=== PATIENT | female | born 1945 | race Caucasian/White ===

== ENCOUNTER → 2016-12-03 | Outpatient (CLI) | payer MEDICARE, OTHER ==
[2016-12-03 14:10] LABS: HEMATOCRIT 37.4 % (36.0-47.0); HEMOGLOBIN 12.4 g/dL (12.0-15.5); HGB HCT DIFFERENCE -0.2; MEAN CORPUSCULAR HEMOGLOBIN 30.6 pg (27.0-33.4); MEAN CORPUSCULAR HGB CONC 33.3 g/dL (32.0-36.0); MEAN CORPUSCULAR VOLUME 92 fl (80-97); RED BLOOD COUNT 4.07 10^6/uL (3.72-5.28); RED CELL DISTRIBUTION WIDTH 12.7 % (11.5-14.0); WHITE BLOOD COUNT 4.9 10^3/uL (4.0-10.5)
[2016-12-03 14:29] LABS: ALANINE AMINOTRANSFERASE 34 U/L (9-52); ALBUMIN 4.1 g/dL (3.5-5.0); ALKALINE PHOSPHATASE 46 U/L (38-126); ANION GAP 12 (5-19); ASPARTATE AMINO TRANSFERASE 43 U/L (14-36); BILIRUBIN,TOTAL 0.9 mg/dL (0.2-1.3); BLOOD UREA NITROGEN 18 mg/dL (7-20); CALCIUM 9.4 mg/dL (8.4-10.2); CARBON DIOXIDE 31 mmol/L (22-30); CHLORIDE 92 mmol/L (98-107); CHOLESTEROL 235.56 mg/dL (0-200); CREATININE RESULT 0.83 mg/dL (0.52-1.25); Direct HDL 44 mg/dL (>40); GLUCOSE 96 mg/dL (75-110); POTASSIUM 3.5 mmol/L (3.6-5.0); SODIUM 135.1 mmol/L (137-145); TOTAL PROTEIN 7.2 g/dL (6.3-8.2); TRIGLYCERIDES 306 mg/dL (<150)
[2016-12-03 14:41] LABS: DIRECT LDL 160 mg/dL (<100)
[2016-12-03 14:43] LABS: VLDL CHOLESTEROL 61.2 mg/dL (10-31)
[2016-12-03 14:54] LABS: THYROID STIMULATING HORMONE 0.79 uIU/mL (0.47-4.68)
== END ==
LOC: PNR 12:31
PROVIDERS: ATTEND Internal Medicine
DX: I10 Essential (primary) hypertension (principal); E78.00 Pure hypercholesterolemia, unspecified; E03.9 Hypothyroidism, unspecified; Z79.899 Other long term (current) drug therapy
CPT/HCPCS: 80053; 80061; 84439; 84443; 85027

== ENCOUNTER → 2017-09-08 | Outpatient (CLI) | payer MEDICARE, OTHER ==
[2017-09-08 12:56] LABS: ABSOLUTE BASOPHILS # (AUTO) 0.1 10^3/uL (0.0-0.2); ABSOLUTE EOSINOPHILS # (AUTO) 0.2 10^3/uL (0.0-0.6); ABSOLUTE LYMPHOCYTES (AUTO) 1.8 10^3/uL (0.5-4.7); ABSOLUTE MONOCYTES (AUTO) 0.5 10^3/uL (0.1-1.4); ABSOLUTE NEUT (AUTO) 2.8 10^3/uL (1.7-8.2); BASOPHILS % (AUTO) 1.1 % (0-2); HEMATOCRIT 33.9 % (36.0-47.0); HEMOGLOBIN 12.3 g/dL (12.0-15.5); LYMPHOCYTES % (AUTO) 33.6 % (13-45); MEAN CORPUSCULAR HGB CONC 36.3 g/dL (32.0-36.0); MEAN CORPUSCULAR VOLUME 88 fl (80-97); MONOCYTES % (AUTO) 9.6 % (3-13); RED BLOOD COUNT 3.85 10^6/uL (3.72-5.28); RED CELL DISTRIBUTION WIDTH 13.2 % (11.5-14.0); SEGMENTED NEUTROPHILS % (AUTO) 51.7 % (42-78); WHITE BLOOD COUNT 5.3 10^3/uL (4.0-10.5)
[2017-09-08 13:16] LABS: ALANINE AMINOTRANSFERASE 34 U/L (9-52); ALBUMIN 4.7 g/dL (3.5-5.0); ALKALINE PHOSPHATASE 55 U/L (38-126); ANION GAP 14 (5-19); ASPARTATE AMINO TRANSFERASE 26 U/L (14-36); BILIRUBIN,DIRECT 0.4 mg/dL (0.0-0.4); BILIRUBIN,TOTAL 0.9 mg/dL (0.2-1.3); BLOOD UREA NITROGEN 14 mg/dL (7-20); CALCIUM 10.1 mg/dL (8.4-10.2); CARBON DIOXIDE 30 mmol/L (22-30); CHLORIDE 92 mmol/L (98-107); CHOLESTEROL 235.73 mg/dL (0-200); CREATININE RESULT 0.86 mg/dL (0.52-1.25); Direct HDL 53 mg/dL (>40); GLUCOSE 102 mg/dL (75-110); MAGNESIUM 1.9 mg/dL (1.6-2.3); POTASSIUM 3.5 mmol/L (3.6-5.0); SODIUM 135.6 mmol/L (137-145); TOTAL PROTEIN 7.8 g/dL (6.3-8.2); TRIGLYCERIDES 275 mg/dL (<150)
[2017-09-08 13:27] LABS: DIRECT LDL 141 mg/dL (<100)
[2017-09-08 13:47] LABS: THYROID STIMULATING HORMONE 0.15 uIU/mL (0.47-4.68)
== END ==
LOC: OD 12:20
PROVIDERS: ATTEND Internal Medicine
DX: E03.9 Hypothyroidism, unspecified (principal); I10 Essential (primary) hypertension; E11.29 Type 2 diabetes mellitus with other diabetic kidney complication; Z79.899 Other long term (current) drug therapy
CPT/HCPCS: 36415; 80053; 80061; 82306; 82607; 82746; 83036; 83735; 84439; 84443; 85025

== ENCOUNTER 2019-07-10 21:18 | Emergency (ER) | payer MEDICARE ==
--- NOTE | 2019-07-10 22:43 | ER Document Report ---
ED Psych Disorder / Suicide - General Chief Complaint: Psych Problem Stated Complaint: VISUAL DISTURBANCES Time Seen by Provider: 07/10/19 22:19 Primary Care Provider: VICTORINO CASTRO PA-C [NO LOCAL MD] - Follow up as needed TRAVEL OUTSIDE OF THE [place] IN LAST 30 DAYS: No - HPI Notes: Patient is a 73-year-old female that presents to the emergency department for chief complaint of visual hallucinations. Patient states she is been having visual hallucinations for the last 3 or 4 days. She states the main when she can remember she was sitting on her couch and saw a figure of 2 Girls Walk into her living room. She can vividly describe 1 of the girls is a blond wearing a unique outfit that was hard to see. She states she was very sure that the hallucinations were real until she told her son about them. Patient believes they started after being put on citalopram and BuSpar. She had been on chronic Ativan and because of home stressors had taken more than prescribed. Patient ran out of the Ativan about 2 weeks ago and her son took her to a new doctor to help with her symptoms. The new doctor began on the citalopram and BuSpar. Patient denies history of hallucinations or psychosis in the past. She takes the Ativan for anxiety. She denies any recent illness including fever, chills, cough, shortness of breath, chest pain, nausea/vomiting, abdominal pain and diarrhea. Past Medical History: Hypertension, neuropathy Past Surgical History: Reviewed in chart Social History: Lives at home independently. Denies tobacco, drug and alcohol use Family History: Reviewed and noncontributory for presenting illness Allergies: Reviewed, see documented allergy list. REVIEW OF SYSTEMS: CONSTITUTIONAL : No fever No chills No diaphoresis No recent illness EENT: No vision changes No congestion No sore throat CARDIOVASCULAR: No chest pain No palpitations RESPIRATORY: No shortness of breath No cough No difficulty breathing GASTROINTESTINAL: No abdominal pain No nausea No vomiting No diarrhea GENITOURINARY: No dysuria No hematuria No difficulty urinating MUSCULOSKELETAL: No back pain No leg pain No arm pain SKIN: No rashes No lesions LYMPHATIC: No swollen, enlarged glands. NEUROLOGICAL: No lightheadedness No headache No weakness No paresthesias PSYCHIATRIC: anxiety Hallucinations No depression PHYSICAL EXAMINATION: Vital signs reviewed, nursing noted reviewed. GENERAL: Well-appearing, well-nourished and in no acute distress. HEAD: Atraumatic, normocephalic. EYES: Eyes appear normal, extraocular movements intact, sclera anicteric, conjunctiva are normal. ENT: nares patent, oropharynx clear without exudates. Moist mucous membranes. NECK: Normal range of motion, supple without lymphadenopathy LUNGS: Breath sounds clear to auscultation bilaterally and equal. No wheezes rales or rhonchi. HEART: Regular rate and rhythm without murmurs ABDOMEN: Soft, nontender, normoactive bowel sounds. No rebound, guarding, or rigidity. No masses appreciated. EXTREMITIES: Nontender, good range of motion, no pitting or edema. NEUROLOGICAL: No focal neurological deficits. Moves all extremities s pontaneously Motor and sensory grossly intact on exam. PSYCH: Normal mood, normal affect. Not actively hallucinating. Not suicidal or homicidal SKIN: Warm, Dry, normal turgor, no rashes or lesions noted on exposed skin - Related Data Allergies/Adverse Reactions: celecoxib [From Celebrex] Allergy (Severe, Verified 12/05/11 10:52) felt crazy diazepam [From Valium] Allergy (Severe, Verified 12/05/11 10:52) Nightmares Past Medical History - Social History Smoking Status: Never Smoker Family History: Reviewed & Not Pertinent - Past Medical History Cardiac Medical History: Reports: Hx Hypertension - medicated Denies: Hx Coronary Artery Disease, Hx Heart Attack Pulmonary Medical History: Denies: Hx Asthma, Hx Bronchitis, Hx COPD, Hx Pneumonia Neurological Medical History: Denies: Hx Cerebrovascular Accident, Hx Seizures GI Medical History: Denies: Hx Hepatitis, Hx Hiatal Hernia, Hx Ulcer Musculoskeletal Medical History: Denies Hx Arthritis Infectious Medical History: Denies: Hx Hepatitis Past Surgical History: Reports: Hx Hysterectomy. Denies: Hx Mastectomy, Hx Open Heart Surgery, Hx Pacemaker - Immunizations Hx Diphtheria, Pertussis, Tetanus Vaccination: No Physical Exam - Vital signs Vitals: Temp Pulse Resp BP Pulse Ox 98.1 F 61 20 139/51 H 97 07/10/19 21:20 07/10/19 21:20 07/10/19 21:20 07/10/19 21:20 07/10/19 21:20 Course - Re-evaluation Re-evalutation: 07/10/19 22:42 Vitals reviewed. Nursing notes reviewed. Patient is alert and oriented. She does not appear to be having active hallucinations and denies any hallucinations currently. Patient's son is also present who is concerned about her confusion and visual hallucinations. Patient did start new medications just prior to onset which may be the cause. Lab work will be obtained today to evaluate for any other etiology including urinary tract infection or metabolic derangement. 07/10/19 23:55 Patient's lab work today shows hyponatremia at 125.9. Patient does report taking Lasix for history of fluid overload. She denies any history of congestive heart failure. Patient's hallucinations are not likely secondary to her hyponatremia. My comparison is from 2017 which she states was prior to her starting the Lasix. I did discuss her hyponatremia with Dr. Peerz who does not feel she necessitates inpatient admission. He recommends trying some corrective measures had repeating it in the morning. The remainder of her work- up is unremarkable. Her hallucinations are likely secondary to medications. Patient is medically cleared at this point for further psychiatric evaluation in the morning. Laboratory 07/10/19 07/10/19 07/10/19 22:50 22:50 23:00 WBC 7.6 RBC 4.29 Hgb 13.3 Hct 37.2 MCV 87 MCH 30.9 MCHC 35.6 RDW 12.6 Plt Count 251 Lymph % (Auto) 27.8 [place] % (Auto) 12.9 Eos % (Auto) 1.1 Baso % (Auto) 0.6 Absolute Neuts (auto) 4.4 Absolute Lymphs (auto) 2.1 Absolute Monos (auto) 1.0 Absolute Eos (auto) 0.1 Absolute Basos (auto) 0.0 Seg Neutrophils % 57.6 Sodium 125.9 L Potassium 3.2 L Chloride 85 L Carbon Dioxide 28 Anion Gap 13 BUN 20 Creatinine 0.92 Est GFR ( Amer) > 60 Est GFR (MDRD) Non-Af > 60 Glucose 107 Calcium 9.4 Total Bilirubin 1.0 Direct Bilirubin 0.2 Neonat Total Bilirubin Not Reportable Neonat Direct Bilirubin Not Reportable Neonat Indirect Bili Not Reportable AST 50 H ALT 35 Alkaline Phosphatase 56 Total Protein 7.6 Albumin 4.8 Urine Color YELLOW Urine Appearance CLEAR Urine pH 6.0 Ur Specific [place]y 1.016 Urine Protein NEGATIVE Urine Glucose (UA) NEGATIVE Urine Ketones TRACE H Urine Blood SMALL H Urine Nitrite NEGATIVE Urine Bilirubin NEGATIVE Urine Urobilinogen 2.0 H Ur Leukocyte Esterase SMALL H Urine WBC (Auto) 4 Urine RBC (Auto) 2 Squamous Epi Cells Auto <1 Urine Mucus (Auto) RARE Urine Ascorbic Acid NEGATIVE Salicylates < 1.0 L Acetaminophen < 10 L Serum Alcohol < 10 - Vital Signs Vital signs: Temp Pulse Resp BP Pulse Ox 98.1 F 61 20 139/51 H 97 07/10/19 21:20 07/10/19 21:20 07/10/19 21:20 07/10/19 21:20 07/10/19 21:20 - Laboratory Result Diagrams: 07/10/19 22:50 07/10/19 22:50 Laboratory results interpreted by me: 07/10/19 07/10/19 22:50 23:00 Sodium 125.9 L Potassium 3.2 L Chloride 85 L AST 50 H Urine Ketones TRACE H Urine Blood SMALL H Urine Urobilinogen 2.0 H Ur Leukocyte Esterase SMALL H Salicylates < 1.0 L Acetaminophen < 10 L Discharge - Discharge Clinical Impression: Visual hallucinations, Hyponatremia Condition: Stable Disposition: PSYCH HOSP/UNIT Referrals: VICTORINO CASTRO PA-C [NO LOCAL MD] - Follow up as needed
[2019-07-10 23:05] LABS: ABSOLUTE EOSINOPHILS # (AUTO) 0.1 10^3/uL (0.0-0.6); ABSOLUTE LYMPHOCYTES (AUTO) 2.1 10^3/uL (0.5-4.7); ABSOLUTE NEUT (AUTO) 4.4 10^3/uL (1.7-8.2); BASOPHILS % (AUTO) 0.6 % (0-2); EOSINOPHILS % (AUTO) 1.1 % (0-6); HEMATOCRIT 37.2 % (36.0-47.0); HEMOGLOBIN 13.3 g/dL (12.0-15.5); LYMPHOCYTES % (AUTO) 27.8 % (13-45); MEAN CORPUSCULAR HEMOGLOBIN 30.9 pg (27.0-33.4); MEAN CORPUSCULAR HGB CONC 35.6 g/dL (32.0-36.0); MEAN CORPUSCULAR VOLUME 87 fl (80-97); MONOCYTES % (AUTO) 12.9 % (3-13); PLATELET COUNT 251 10^3/uL (150-450); RED BLOOD COUNT 4.29 10^6/uL (3.72-5.28); RED CELL DISTRIBUTION WIDTH 12.6 % (11.5-14.0); SEGMENTED NEUTROPHILS % (AUTO) 57.6 % (42-78); TOTAL CELLS COUNTED % (AUTO) 100 %; WHITE BLOOD COUNT 7.6 10^3/uL (4.0-10.5)
[2019-07-10 23:28] LABS: ALBUMIN 4.8 g/dL (3.5-5.0); ALKALINE PHOSPHATASE 56 U/L (38-126); ANION GAP 13 (5-19); ASPARTATE AMINO TRANSFERASE 50 U/L (14-36); BILIRUBIN,DIRECT 0.2 mg/dL (0.0-0.4); BLOOD UREA NITROGEN 20 mg/dL (7-20); CALCIUM 9.4 mg/dL (8.4-10.2); CARBON DIOXIDE 28 mmol/L (22-30); CHLORIDE 85 mmol/L (98-107); GLUCOSE 107 mg/dL (75-110); POTASSIUM 3.2 mmol/L (3.6-5.0); TOTAL PROTEIN 7.6 g/dL (6.3-8.2)
[2019-07-10 23:30] LABS: ACETAMINOPHEN < 10 ug/mL (10-30); ALCOHOL < 10 mg/dL (NONE DETECTED); SALICYLATE < 1.0 mg/dL (2.0-20.0)
[2019-07-10 23:32] LABS: APPEARANCE,URINE CLEAR; BILIRUBIN,URINE NEGATIVE (NEGATIVE); COLOR,URINE YELLOW; GLUCOSE, URINE NEGATIVE (NEGATIVE); KETONES,URINE TRACE mg/dL (NEGATIVE); LEUKOCYTE ESTERASE,URINE SMALL (NEGATIVE); NITRITE,URINE NEGATIVE (NEGATIVE); PROTEIN,URINE NEGATIVE (NEGATIVE); URINE SPECIFIC GRAVITY 1.016
[2019-07-10 23:49] LABS: URINE AMPHETAMINES SCREEN NEGATIVE; URINE BARBITURATES SCREEN NEGATIVE; URINE BENZODIAZEPINES SCREEN NEGATIVE; URINE COCAINE SCREEN NEGATIVE; URINE MARIJUANA (THC) SCREEN NEGATIVE; URINE METHADONE SCREEN NEGATIVE; URINE PHENCYCLIDINE SCREEN NEGATIVE
[2019-07-10] MEDS ORDERED: NORMAL SALINE 1000 ML 1,000 ML IV ONE (23:52)
[2019-07-11] MEDS ORDERED: ZIPRASIDONE HCL 20 MG CAPSULE PO ONE (05:09)
[2019-07-11] MEDS ORDERED: ZIPRASIDONE MESYLATE INJ/PF 20 MG SDV IM ONE (05:21)
[2019-07-11 08:28] LABS: ANION GAP 11 (5-19); BLOOD UREA NITROGEN 14 mg/dL (7-20); CALCIUM 8.6 mg/dL (8.4-10.2); CARBON DIOXIDE 25 mmol/L (22-30); CHLORIDE 92 mmol/L (98-107); GLUCOSE 108 mg/dL (75-110)
[2019-07-11 08:33] LABS: POTASSIUM 2.7 mmol/L (3.6-5.0)
[2019-07-11] MEDS ORDERED: POTASSIUM CHLORIDE 20 MEQ PACKET PO ONE (09:04)
[2019-07-11] MEDS ORDERED: NORMAL SALINE 1000 ML 1,000 ML IV ONE (09:04)
--- NOTE | 2019-07-11 09:30 | EKG REPORT ---
SEVERITY:- ABNORMAL ECG - SINUS RHYTHM NONSPECIFIC INTRAVENTRICULAR CONDUCTION DELAY : Confirmed by: Daisha Christina MD 11-Jul-2019 09:29:41
[2019-07-11] MEDS ORDERED: POTASSIUM CHLORIDE 10 MEQ CAPSULE.ER PO ONE ×2 (11:06→12:23)
--- NOTE | 2019-07-11 17:42 | PSYCHOLOGICAL NOTE ---
Psych Note - Psych Note Date seen by psych provider: 07/11/19 Time seen by psych provider: 08:25 Psych Note: Patient is a 73-year-old female that presents to the emergency department for chief complaint of visual hallucinations. Withdrawal of ativan adverse reaction to celexa and/or buspar Medication recommendations per [facility]'s contracted psychiatrist Dr. Kathrine LIRA are as follows discontinue home medications of celexa and buspar Impression/plan: Patient is recommended for overnight mental health observation. Patient and patient's son agree for patient to voluntarily stay overnight. Patient stopped taking Ativan 13 days ago and started taking both BuSpar and Celexa 5 days ago. Patient's onset of symptoms was 5 days ago. Patient has demonstrated improved presentation however there is concern of decompensation with auditory and/or visual hallucinations. Probable discharge in the morning if patient does not have any further difficulties. Dr. Mcleod was consulted to care management this patient; attending physicians in agreement with recommendat ions and disposition.
--- NOTE | 2019-07-12 00:14 | EKG REPORT ---
SEVERITY:- ABNORMAL ECG - SINUS RHYTHM ATRIAL PREMATURE COMPLEX PROBABLE LEFT ATRIAL ABNORMALITY ABNORMAL T, CONSIDER ISCHEMIA, ANT-LAT LEADS PROLONGED QT INTERVAL : Confirmed by: Daisha Christina MD 12-Jul-2019 00:13:46
[2019-07-12] MEDS ORDERED: ZIPRASIDONE MESYLATE INJ/PF 20 MG SDV IM ONE (01:03)
--- NOTE | 2019-07-12 01:04 | ER Document Report ---
Doctor's Note Notes: 07/12/19 01:03 Patient is agitated and having visual hallucinations. She is unable to sleep. She will be given Geodon again for increased hallucinations. She did tolerate this medication well yesterday with improvement of symptoms.
[2019-07-12 11:52] LABS: ALKALINE PHOSPHATASE 47 U/L (38-126); ANION GAP 9 (5-19); ASPARTATE AMINO TRANSFERASE 38 U/L (14-36); BILIRUBIN,DIRECT 0.3 mg/dL (0.0-0.4); BILIRUBIN,TOTAL 0.8 mg/dL (0.2-1.3); BLOOD UREA NITROGEN 10 mg/dL (7-20); CALCIUM 9.4 mg/dL (8.4-10.2); CARBON DIOXIDE 23 mmol/L (22-30); CHLORIDE 103 mmol/L (98-107); GLUCOSE 113 mg/dL (75-110); POTASSIUM 4.1 mmol/L (3.6-5.0); TOTAL PROTEIN 6.4 g/dL (6.3-8.2)
--- NOTE | 2019-07-12 12:56 | PSYCHOLOGICAL NOTE ---
Psych Note - Psych Note Date seen by psych provider: 07/12/19 Time seen by psych provider: 07:37 - Chart review at 0737. Evaluation from 810- 0814 (woke her up). Discussion with attending nurse at 1127. Psych Note: Presenting Problem: A/V hallucinations x 5 days, stopped Ativan a couple weeks ago and was started on Celexa/Buspar combination. Held overnight to stop all medication. She was administered Potassium 120meq yesterday due to lab being low and Sodium was slightly low. She was administered Geodon 10MH IM at 0112 due to psychosis: she went to nurses station crying and said mom and dad were outside looking in through the window and that she needed to leave to call her brother. Today this clinician woke patient up from sleeping. She was easily aroused. She reported she felt good and better. Attending nurse stated when she talked with patient and mentioned her son calling patient said "what do you mean my son was murdered." Nurse stated she was very confused, was aware of her confusion and commented "I'm getting Alzheimer's." Son (Wily, ) at bedside with patient's . He was made aware of plan of care: hold overnight again, start medication regimen and reassess in the morning. They noted a family Hx of Alzheimer's (patient's mother) and confirmed patient was on benzodiazepines for a long time. Son reported some memory issues and no significant MH Hx. Diagnosis: Psychosis Withdrawal of Ativan Adverse reaction to Celexa and/or Buspar Medication recommendations made by the psychiatric medication provider, Dr. Kathrine MD., includes: Of note Celexa my still be in patient's system as it would take about 72 hours for it to be out of her system, Buspar should be out as it only takes [address] requested given age and family history (mother had Alzheimer's) Add Vistaril 50MG once now Add Vistaril 50MG every 8 hours as needed for anxiety/agitation Add Zyprexa 2.5MG every 8 hours for mood stabilization/psychosis Impression/Plan: Recommendation to hold overnight again for observation. Patient continued to display psychosis. There are concerns for benzo withdrawal and reaction to new medications (Celexa/Buspar). Started scheduled medication regimen. Requested Head CT. Will reassess tomorrow morning to see if patient's symptoms are persisting, worsening or improving. Consulted with Dr. Mcleod regarding the management and care of patient. ED Physician in agreement with recommendations.
[2019-07-12] MEDS ORDERED: HYDROXYZINE PAMOATE 50 MG CAPSULE PO ONE (13:43)
[2019-07-12] MEDS ORDERED: HYDROXYZINE PAMOATE 50 MG CAPSULE PO PRN (13:50)
[2019-07-12] MEDS: OLANZAPINE 2.5 MG TABLET PO SCH ×2 (14:04→23:35)
--- NOTE | 2019-07-12 16:37 | RADIOLOGY REPORT (SQ) ---
EXAM DESCRIPTION: CT HEAD WITHOUT COMPLETED DATE/TIME: 07/12/2019 4:26 pm REASON FOR STUDY: hx of dementia, eval for atrophy R44.1 VISUAL HALLUCINATIONS R44.1 VISUAL HALLUC INATIONS E87.1 HYPO-OSMOLALITY AND HYPONATREMIA COMPARISON: None. TECHNIQUE: Axial images acquired through the brain without intravenous contrast. Images reviewed wi th bone, brain and subdural windows. Additional sagittal and coronal reconstructions were generated. Images stored on PACS. All CT scanners at this facility use dose modulation, iterative reconstruction, and/or weight based d osing when appropriate to reduce radiation dose to as low as reasonably achievable (ALARA). [facility]: Dose Right [facility]: CareDose [facility]: Dose Right [facility]: Teradose 4D [facility]: Smart SurDoc RADIATION DOSE: CT Rad equipment meets quality standard of care and radiation dose reduction techniq ues were employed. CTDIvol: 48.5 mGy. DLP: 879 mGy-cm. mGy. LIMITATIONS: None. FINDINGS: VENTRICLES: Prominent. CEREBRUM: No masses. No hemorrhage. No midline shift. Areas of low density in the white matter mos t likely due to chronic micro-vascular ischemic change. No evidence for acute infarction. CEREBELLUM: No masses. No hemorrhage. No alteration of density. No evidence for acute infarction. EXTRAAXIAL SPACES: Mild age-related involutional change. No fluid collections. No masses. ORBITS AND GLOBE: No intra- or extraconal masses. Normal contour of globe without masses. CALVARIUM: No fracture. PARANASAL SINUSES: No fluid or mucosal thickening. SOFT TISSUES: No mass or hematoma. OTHER: No other significant finding. IMPRESSION: MILD CHRONIC CHANGES OF ATROPHY AND MICROVASCULAR ISCHEMIA. NO ACUTE PROCESS. EVIDENCE OF ACUTE STROKE: NO. TECHNICAL DOCUMENTATION: JOB ID: [id number] Quality ID # [id number]: Final reports with documentation of one or more dose reduction techniques (e.g., Au tomated exposure control, adjustment of the mA and/or kV according to patient size, use of iterative reconstruction technique) 2010 [employer]- All Rights Reserved Reading location - IP/workstation name: [email or web address]
[2019-07-12] MEDS: ACETAMINOPHEN 325 MG TABLET PO PRN (20:42)
[2019-07-13] MEDS: OLANZAPINE 2.5 MG TABLET PO SCH (05:47)
[2019-07-13] MEDS ORDERED: LEVOTHYROXINE SODIUM 0.088 MG TABLET PO SCH (08:00)
[2019-07-13 08:32] VITALS: BP 187/59
[2019-07-13] MEDS ORDERED: AMLODIPINE BESYLATE 10 MG TABLET PO SCH (10:00)
[2019-07-13] MEDS ORDERED: LOSARTAN POTASSIUM 50 MG TABLET PO SCH (10:00)
[2019-07-13] MEDS ORDERED: HYDROCHLOROTHIAZIDE 12.5 MG TABLET PO SCH (10:00)
[2019-07-13] MEDS ORDERED: METOPROLOL TARTRATE 25 MG TABLET PO SCH (10:00)
--- NOTE | 2019-07-13 10:37 | PSYCHOLOGICAL NOTE ---
Psych Note - Psych Note Date seen by psych provider: 07/13/19 Time seen by psych provider: 08:00 - Chart review at 0800. Evaluation from 923- [id number]. Psych Note: Presenting Problem: A/V hallucinations x 5 days, stopped Ativan a couple weeks ago and was started on Celexa/Buspar combination. She continued with psychosis so medications were started 07/12/19 (Zyprexa 2.5 Q8H and Vistaril 50MG Q8H PRN). She is better today but still confused with disorganized thinking and inability to form sentences very well. She could carry on some dialogue conversation though and had awareness into her confusion and inability to form sentences/slow processing. Head CT dated 07/12/19 had language consistent with neurodegenerative processes. Son yesterday noted memory issues which they figured was a side effect from benzodiazepines. She had her brother, [id number], daughter, granddaughter and son visiting and as natural supports. 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 Kathrine MD., includes: Treating Physicians are asked to consider avoiding the use of antipsychotic medications (Haldol, Geodon, Zyprexa, Risperdal), benzodiazepines (Klonopin, Xanax, Ativan, Valium), some sleep aids (Ambien, Trazodone, Seroquel), narcotic pain medications and prolonged use of steroids as these have been known to cause and/or exacerbate MH symptoms (psychosis: hallucinations/paranoia/delusional thinking/micheal, aggression, agitation and confusion) in individuals with neurode generative processes. Change/Decrease Zyprexa to 2.5MG twice a day for psychosis/mood stabilization Impression/Plan: Patient is cleared from acute psychiatric services. Her issues are felt to be a result of benzo wothdrawal, adverse reaction to medications and possible neurodegenerative processes. She could benefit from another overnight observation. Patient continued to display confusion, disorganized thinking and difficulty putting sentences together. She did not recall her daughter visiting last night. Family interested in taking patient home to a more natural environment where there are less external stimuli and stress (a legitimate concern with the location she is in and another patient). Patient would be staying with granddaughter while son takes care of . The plan is that family is seeking assisted living placement for patient's and then patient will be staying with family. Family has agreed to be in charge of medications and administration. Patient and family encouraged to follow up with PCM within 3-5 days and request neurology followup. Also provided outpatient resources for detoxification and included IFS MCM number. Consulted with Dr. Mcleod regarding the management and care of patient. ED Physician in agreement with recommendations.
--- NOTE | 2019-07-13 10:55 | ER Document Report ---
Doctor's Note Notes: 07/13/19 10:49 Rounds: Chart reviewed and patient interviewed. Patient being evaluated for anxiety and may be withdrawal from Ativan. Her lab studies showed a potassium initially of 2.7 but that has been repleted to a normal value. Her sodium was somewhat low as well at 128. Blood pressure today running 187/59. Patient on medications for blood pressure. Patient appears to be medically stable for transfer or discharge. Devang Moreno MD
[2019-07-13] MEDS: ACETAMINOPHEN 325 MG TABLET PO PRN (13:14)
[2019-07-13] MEDS ORDERED: OLANZAPINE 2.5 MG TABLET PO SCH (18:00)
--- NOTE | 2019-07-14 07:07 | EKG REPORT ---
SEVERITY:- ABNORMAL ECG - SINUS RHYTHM BORDERLINE LEFT AXIS DEVIATION NONSPECIFIC T ABNORMALITIES, ANT-LAT LEADS : Confirmed by: Freddy Mena MD 14-Jul-2019 07:07:02
== END 2019-07-13 14:28 | disposition home or self-care (01) ==
LOC: ER 21:18
DX: R44.1 Visual hallucinations (principal); E87.1 Hypo-osmolality and hyponatremia; I10 Essential (primary) hypertension; Z90.710 Acquired absence of both cervix and uterus
CPT/HCPCS: 93005 ×2; 99285; 96372; 96360; 36415; 80307 ×4; 83735; 84132; 84443; 85025; 80048; 80053; 81001; 93010 ×2; A9270 ×9; J3486 ×2; J7030; J3490

== ENCOUNTER 2019-07-14 11:37 | Emergency (ER) | payer MEDICARE ==
--- NOTE | 2019-07-14 12:09 | ER Document Report ---
ED Medical Screen (RME) - General Chief Complaint: Psych Problem Stated Complaint: BEHAVIORAL Time Seen by Provider: 07/14/19 11:56 Mode of Arrival: Medic Information source: Emergency Med Personnel Notes: This patient presents to the emergency department for via EMS for reports of altered mental status. According to EMS they were called to the home for respiratory distress but when they got there they discovered patient was having altered mental status. According to EMS report in nurse patient had recent change of medications and is not hallucinating. Patient is calmly resting response to all my questions very slowly. Seems confused about time but is aware of place. Respiratory rate even unlabored. I have greeted and performed a rapid initial assessment of this patient. A co mprehensive ED assessment and evaluation of the patient, analysis of test results and completion of the medical decision making process will be conducted by additional ED providers. Dictation of this chart was performed using voice recognition software; therefore, there may be some unintended grammatical errors. TRAVEL OUTSIDE OF THE [place] IN LAST 30 DAYS: No - Related Data Allergies/Adverse Reactions: celecoxib [From Celebrex] Allergy (Severe, Verified 12/05/11 10:52) felt crazy diazepam [From Valium] Allergy (Severe, Verified 12/05/11 10:52) Nightmares Past Medical History - Past Medical History Cardiac Medical History: Reports: Hx Hypertension - medicated Denies: Hx Coronary Artery Disease, Hx Heart Attack Pulmonary Medical History: Denies: Hx Asthma, Hx Bronchitis, Hx COPD, Hx Pneumonia Neurological Medical History: Denies: Hx Cerebrovascular Accident, Hx Seizures Renal/ Medical History: Denies: Hx Peritoneal Dialysis GI Medical History: Denies: Hx Hepatitis, Hx Hiatal Hernia, Hx Ulcer Musculoskeltal Medical History: Denies Hx Arthritis Infectious Medical History: Denies: Hx Hepatitis Past Surgical History: Reports: Hx Cholecystectomy, Hx Hysterectomy. Denies: Hx Mastectomy, Hx Open Heart Surgery, Hx Pacemaker - Immunizations Hx Diphtheria, Pertussis, Tetanus Vaccination: No Course - Laboratory Result Diagrams: 07/14/19 11:55 07/14/19 11:55
[2019-07-14 12:18] LABS: ABSOLUTE EOSINOPHILS # (AUTO) 0.1 10^3/uL (0.0-0.6); ABSOLUTE LYMPHOCYTES (AUTO) 1.1 10^3/uL (0.5-4.7); ABSOLUTE MONOCYTES (AUTO) 0.3 10^3/uL (0.1-1.4); ABSOLUTE NEUT (AUTO) 2.6 10^3/uL (1.7-8.2); BASOPHILS % (AUTO) 0.9 % (0-2); EOSINOPHILS % (AUTO) 1.5 % (0-6); HEMATOCRIT 36.8 % (36.0-47.0); LYMPHOCYTES % (AUTO) 26.1 % (13-45); MEAN CORPUSCULAR HEMOGLOBIN 31.5 pg (27.0-33.4); MEAN CORPUSCULAR HGB CONC 35.4 g/dL (32.0-36.0); MEAN CORPUSCULAR VOLUME 89 fl (80-97); MONOCYTES % (AUTO) 8.4 % (3-13); PLATELET COUNT 234 10^3/uL (150-450); RED BLOOD COUNT 4.13 10^6/uL (3.72-5.28); RED CELL DISTRIBUTION WIDTH 13.2 % (11.5-14.0); SEGMENTED NEUTROPHILS % (AUTO) 63.1 % (42-78); TOTAL CELLS COUNTED % (AUTO) 100 %; WHITE BLOOD COUNT 4.1 10^3/uL (4.0-10.5)
[2019-07-14 12:26] LABS: ALBUMIN 4.2 g/dL (3.5-5.0); ALKALINE PHOSPHATASE 49 U/L (38-126); ANION GAP 12 (5-19); ASPARTATE AMINO TRANSFERASE 32 U/L (14-36); BILIRUBIN,DIRECT 0.3 mg/dL (0.0-0.4); BLOOD UREA NITROGEN 17 mg/dL (7-20); CALCIUM 9.7 mg/dL (8.4-10.2); CARBON DIOXIDE 24 mmol/L (22-30); CHLORIDE 97 mmol/L (98-107); GLUCOSE 113 mg/dL (75-110); POTASSIUM 3.5 mmol/L (3.6-5.0)
[2019-07-14 12:27] LABS: ACETAMINOPHEN < 10 ug/mL (10-30); ALCOHOL < 10 mg/dL (NONE DETECTED); SALICYLATE < 1.0 mg/dL (2.0-20.0)
--- NOTE | 2019-07-14 13:01 | EKG REPORT ---
SEVERITY:- ABNORMAL ECG - SINUS RHYTHM BORDERLINE LEFT AXIS DEVIATION NONSPECIFIC T ABNORMALITIES, DIFFUSE LEADS : Confirmed by: Freddy Mena MD 14-Jul-2019 13:01:24
[2019-07-14 14:35] LABS: APPEARANCE,URINE CLEAR; BILIRUBIN,URINE NEGATIVE (NEGATIVE); COLOR,URINE YELLOW; GLUCOSE, URINE NEGATIVE (NEGATIVE); KETONES,URINE 20 mg/dL (NEGATIVE); LEUKOCYTE ESTERASE,URINE NEGATIVE (NEGATIVE); NITRITE,URINE NEGATIVE (NEGATIVE); PROTEIN,URINE NEGATIVE (NEGATIVE); UROBILINOGEN,URINE NEGATIVE mg/dL (<2.0)
[2019-07-14 15:06] LABS: URINE AMPHETAMINES SCREEN NEGATIVE; URINE BARBITURATES SCREEN NEGATIVE; URINE BENZODIAZEPINES SCREEN NEGATIVE; URINE COCAINE SCREEN NEGATIVE; URINE MARIJUANA (THC) SCREEN NEGATIVE; URINE METHADONE SCREEN NEGATIVE; URINE PHENCYCLIDINE SCREEN NEGATIVE
--- NOTE | 2019-07-14 15:20 | ER Document Report ---
ED General - General Chief Complaint: Psych Problem Stated Complaint: BEHAVIORAL Time Seen by Provider: 07/14/19 11:56 Mode of Arrival: Medic TRAVEL OUTSIDE OF THE [place] IN LAST 30 DAYS: No - HPI Notes: Patient is a 73-year-old female that presents to the emergency department for chief complaint of confusion. Patient presents with her family at bedside. Her son is providing HPI. Patient has been having rapidly progressing confusion which seems to be worse at night and early in the morning. She was recently seen in the emergency room for concern that this may be secondary to changes in medication. Patient was started on Zyprexa which she did take. Her son states that last night she was not recognizing family members and was becoming very agitated. She appeared scared and confused. These behaviors continued until this morning. Son states this afternoon she has been much better. She has not had any recent fever, cough, shortness of breath, chest pain, nausea/vomiting, abdominal pain or urinary complaints. Son states she has not had as much to eat or drink as usual but is still hydrating appropriately. Patient has an appointment with neurology to diagnose advancing dementia. Family reports a history of Alzheimer's on her side of the family. Past Medical History: Reviewed in chart Past Surgical History: Reviewed in chart Social History: Lives at home with family. Denies tobacco drug and alcohol use Family History: Reviewed and noncontributory for presenting illness Allergies: Reviewed, see documented allergy list. REVIEW OF SYSTEMS: CONSTITUTIONAL : No fever No chills No diaphoresis No recent illness EENT: No vision changes No congestion No sore throat CARDIOVASCULAR: No chest pain No palpitations RESPIRATORY: No shortness of breath No cough No difficulty breathing GASTROINTESTINAL: No abdominal pain No nausea No vomiting No diarrhea GENITOURINARY: No dysuria No hematuria No difficulty urinating MUSCULOSKELETAL: No back pain No leg pain No arm pain SKIN: No rashes No lesions LYMPHATIC: No swollen, enlarged glands. NEUROLOGICAL: Confusion No lightheadedness No headache No weakness No paresthesias PSYCHIATRIC: No anxiety No depression PHYSICAL EXAMINATION: Vital signs reviewed, nursing noted reviewed. GENERAL: Well-appearing, well-nourished and in no acute distress. HEAD: Atraumatic, normocephalic. EYES: Eyes appear normal, extraocular movements intact, sclera anicteric, conjunctiva are normal. ENT: nares patent, oropharynx clear without exudates. Moist mucous membranes. NECK: Normal range of motion, supple without lymphadenopathy LUNGS: Breath sounds clear to auscultation bilaterally and equal. No wheezes rales or rhonchi. HEART: Regular rate and rhythm without murmurs ABDOMEN: Soft, nontender, normoactive bowel sounds. No rebound, guarding, or rigidity. No masses appreciated. EXTREMITIES: Nontender, good range of motion, no pitting or edema. NEUROLOGICAL: No focal neurological deficits. Moves all extremities spontaneously Motor and sensory grossly intact on exam. PSYCH: Depressed mood, flat affect. SKIN: Warm, Dry, normal turgor, no rashes or lesions noted on exposed skin - Related Data Allergies/Adverse Reactions: celecoxib [From Celebrex] Allergy (Severe, Verified 12/05/11 10:52) felt crazy diazepam [From Valium] Allergy (Severe, Verified 12/05/11 10:52) Nightmares Past Medical History - General Information source: Emergency Med Personnel - Social History Smoking Status: Never Smoker Chew tobacco use (# tins/day): No Frequency of alcohol use: None Drug Abuse: None Family History: Reviewed & Not Pertinent Patient has suicidal ideation: No Patient has homicidal ideation: No - Past Medical History Cardiac Medical History: Reports: Hx Congestive Heart Failure, Hx Hypertension - medicated Denies: Hx Coronary Artery Disease, Hx Heart Attack Pulmonary Medical History: Denies: Hx Asthma, Hx Bronchitis, Hx COPD, Hx Pneumonia Neurological Medical History: Denies: Hx Cerebrovascular Accident, Hx Seizures Renal/ Medical History: Denies: Hx Peritoneal Dialysis GI Medical History: Denies: Hx Hepatitis, Hx Hiatal Hernia, Hx Ulcer Musculoskeletal Medical History: Denies Hx Arthritis Psychiatric Medical History: Reports: Hx Depression - &anxiety Infectious Medical History: Denies: Hx Hepatitis Past Surgical History: Reports: Hx Cholecystectomy, Hx Hysterectomy. Denies: Hx Mastectomy, Hx Open Heart Surgery, Hx Pacemaker - Immunizations Hx Diphtheria, Pertussis, Tetanus Vaccination: No Physical Exam - Vital signs Vitals: Resp Pulse Ox 21 H 100 07/14/19 12:09 07/14/19 12:09 Course - Re-evaluation Re-evalutation: 07/14/19 15:19 Vitals reviewed. Nursing notes reviewed. Patient has a flat withdrawn affect. She is frustrated and does have some comprehension that she is confused. The hallucinations of small children seem to have stopped and she denies any current hallucinations. She also denies feeling suicidal or feeling homicidal. Patient's lab work today shows a mild hyponatremia which is improved since her previous visits. The remainder of her blood work is unremarkable. 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 Family does not feel comfortable watching her at home because of her recent behaviors. Currently patient is resting comfortably. I have discussed her care with psych who will get medication recommendations. Patient will remain in the emergency room for monitoring tonight and Laboratory 07/14/19 07/14/19 07/14/19 11:55 11:55 14:19 WBC 4.1 RBC 4.13 Hgb 13.0 Hct 36.8 MCV 89 MCH 31.5 MCHC 35.4 RDW 13.2 Plt Count 234 Lymph % (Auto) 26.1 Kleberg % (Auto) 8.4 Eos % (Auto) 1.5 Baso % (Auto) 0.9 Absolute Neuts (auto) 2.6 Absolute Lymphs (auto) 1.1 Absolute Monos (auto) 0.3 Absolute Eos (auto) 0.1 Absolute Basos (auto) 0.0 Seg Neutrophils % 63.1 Sodium 133.1 L Potassium 3.5 L Chloride 97 L Carbon Dioxide 24 Anion Gap 12 BUN 17 Creatinine 0.84 Est GFR ( Amer) > 60 Est GFR (MDRD) Non-Af > 60 Glucose 113 H Calcium 9.7 Total Bilirubin 1.0 Direct Bilirubin 0.3 Neonat Total Bilirubin Not Reportable Neonat Direct Bilirubin Not Reportable Neonat Indirect Bili Not Reportable AST 32 ALT 30 Alkaline Phosphatase 49 Total Protein 7.0 Albumin 4.2 Urine Color YELLOW Urine Appearance CLEAR Urine pH 7.0 Ur Specific Henry 1.010 Urine Protein NEGATIVE Urine Glucose (UA) NEGATIVE Urine Ketones 20 H Urine Blood NEGATIVE Urine Nitrite NEGATIVE Urine Bilirubin NEGATIVE Urine Urobilinogen NEGATIVE Ur Leukocyte Esterase NEGATIVE Urine WBC (Auto) 1 Urine RBC (Auto) 2 Squamous Epi Cells Auto 1 Urine Mucus (Auto) RARE Urine Ascorbic Acid NEGATIVE Salicylates < 1.0 L Urine Opiates Screen Urine Methadone Screen Acetaminophen < 10 L Ur Barbiturates Screen Ur Phencyclidine Scrn Ur Amphetamines Screen U Benzodiazepines Scrn Urine Cocaine Screen U Marijuana (THC) Screen Serum Alcohol < 10 07/14/19 14:19 WBC RBC Hgb Hct MCV MCH MCHC RDW Plt Count Lymph % (Auto) Kleberg % (Auto) Eos % (Auto) Baso % (Auto) Absolute Neuts (auto) Absolute Lymphs (auto) Absolute Monos (auto) Absolute Eos (auto) Absolute Basos (auto) Seg Neutrophils % Sodium Potassium Chloride Carbon Dioxide Anion Gap BUN Creatinine Est GFR ( Amer) Est GFR (MDRD) Non-Af Glucose Calcium Total Bilirubin Direct Bilirubin Neonat Total Bilirubin Neonat Direct Bilirubin Neonat Indirect Bili AST ALT Alkaline Phosphatase Total Protein Albumin Urine Color Urine Appearance Urine pH Ur Specific Henry Urine Protein Urine Glucose (UA) Urine Ketones Urine Blood Urine Nitrite Urine Bilirubin Urine Urobilinogen Ur Leukocyte Esterase Urine WBC (Auto) Urine RBC (Auto) Squamous Epi Cells Auto Urine Mucus (Auto) Urine Ascorbic Acid Salicylates Urine Opiates Screen NEGATIVE Urine Methadone Screen NEGATIVE Acetaminophen Ur Barbiturates Screen NEGATIVE Ur Phencyclidine Scrn NEGATIVE Ur Amphetamines Screen NEGATIVE U Benzodiazepines Scrn NEGATIVE Urine Cocaine Screen NEGATIVE U Marijuana (THC) Screen NEGATIVE Serum Alcohol social work consultation - Vital Signs Vital signs: Temp Pulse Resp BP Pulse Ox 23 H 164/62 H 100 07/14/19 14:01 07/14/19 13:02 07/14/19 14:01 - Laboratory Result Diagrams: 07/14/19 11:55 07/14/19 11:55 Laboratory results interpreted by me: 07/14/19 07/14/19 11:55 14:19 Sodium 133.1 L Potassium 3.5 L Chloride 97 L Glucose 113 H Urine Ketones 20 H Salicylates < 1.0 L Acetaminophen < 10 L Discharge - Discharge Clinical Impression: Confusion, Hyponatremia Condition: Stable Disposition: PSYCH HOSP/UNIT
[2019-07-14] MEDS: METOPROLOL TARTRATE 50 MG TABLET PO SCH ×2 (16:35→17:39)
[2019-07-14] MEDS: HYDROCHLOROTHIAZIDE 12.5 MG TABLET PO SCH (16:35)
[2019-07-14] MEDS: AMLODIPINE BESYLATE 5 MG TABLET PO SCH ×2 (16:35→17:39)
[2019-07-14] MEDS: RISPERIDONE 0.25 MG TABLET PO SCH (17:51)
[2019-07-14] MEDS: DIVALPROEX SODIUM 250 MG TAB.SR.24H PO SCH (17:51)
[2019-07-14] MEDS: GABAPENTIN 300 MG CAPSULE PO SCH (17:51)
[2019-07-15] MEDS: DIVALPROEX SODIUM 250 MG TAB.SR.24H PO SCH (09:18)
[2019-07-15] MEDS: GABAPENTIN 300 MG CAPSULE PO SCH (09:18)
[2019-07-15] MEDS: AMLODIPINE BESYLATE 5 MG TABLET PO SCH (09:19)
[2019-07-15] MEDS: METOPROLOL TARTRATE 50 MG TABLET PO SCH (09:19)
[2019-07-15] MEDS: HYDROCHLOROTHIAZIDE 12.5 MG TABLET PO SCH (09:25)
[2019-07-15] MEDS: RISPERIDONE 0.25 MG TABLET PO SCH (09:35)
[2019-07-15] MEDS ORDERED: LEVOTHYROXINE SODIUM 0.088 MG TABLET PO SCH (10:00)
[2019-07-15] MEDS ORDERED: FUROSEMIDE 40 MG TABLET PO SCH (10:00)
--- NOTE | 2019-07-15 12:00 | PSYCHOLOGICAL NOTE ---
Psych Note - Psych Note Date seen by psych provider: 07/15/19 Time seen by psych provider: 02:30 Psych Note: Reason for Consult: AMS Patient's and son at bedside per patient's request Patient is a 73-year-old female that presents to the emergency department for chief complaint of confusion. Family reports patient is continued having difficulties with confusion. Patient is demonstrating difficulty with orientation that seems to wax and wane. Medication recommendations per [facility] was contracted psychiatrist Dr. Kathrine LIRA are as follows Discontinue home medications of Zyprexa Please start Depakote 250 mg twice daily risperidone 0.25 mg twice daily Altered mental status R/O unspecified neurodegenerative processes Impression\plan: Patient is recommended for overnight mental health observation. Medication recommendations have been provided. Patient will be reevaluated. Dr. Mcleod was consulted to care management of this patient; attending physicians in agreement with recommendations and disposition
--- NOTE | 2019-07-15 12:03 | PSYCHOLOGICAL NOTE ---
Psych Note - Psych Note Date seen by psych provider: 07/15/19 Time seen by psych provider: 08:20 Psych Note: Reason for Consult: AMS Patient's brother and daughter at bedside per patient's request Patient is a 73-year-old female that presents to the emergency department for chief complaint of confusion. Checking conducted with patient Patient reports that she slept really good and states she does not remember the last time she slept that good. She continued to report that this morning she actually woke up hungry for the first time in a long time and ate all her breakfast. Patient's family report that the patient will not return back home to her as her his caregiver at is clear that she is unable to continue doing this. Patient's daughter has flown in from out of state and plans to stay in the local area until appropriate arrangements can be made for patient's care. Patient is recommended to follow-up with neurologist. Medication recommendations per [facility]'s contracted psychiatrist Dr. Kathrine LIRA are as follows Discontinue home medications of Zyprexa Please start Depakote 250 mg twice daily risperidone 0.25 mg twice daily Altered mental status R/O unspecified neurodegenerative processes Impression\plan: Patient is recommended for overnight mental health observation. Medication recommendations have been provided. Patient's daughter has flown in from out of state and plans to stay in the local area until appropriate arrangements can be made for patient's care; she will not stay in the same home as her who has severe dementia. Patient is recommended to follow-up with neurologist. Dr. Mcleod was consulted to care management of this patient; attending physicians in agreement with recommendations and disposition
--- NOTE | 2019-07-15 13:05 | ER Document Report ---
Doctor's Note Notes: 07/15/19 13:04 Rounds: Chart reviewed and patient interviewed. Patient has stable dementia.. Vital signs are all essentially normal. No labs to review. Patient appears to be medically stable for transfer or discharge. Devang Moreno MD
[2019-07-15 13:32] VITALS: BP 133/52
== END 2019-07-15 13:33 | disposition home or self-care (01) ==
LOC: ER 11:37
DX: R41.0 Disorientation, unspecified (principal); E87.1 Hypo-osmolality and hyponatremia; Z79.899 Other long term (current) drug therapy; I50.9 Heart failure, unspecified; I11.0 Hypertensive heart disease with heart failure
CPT/HCPCS: 93005; 99285; 36415; 80307 ×4; 82140; 84443; 85025; 80053; 81001; 93010; A9270 ×14; J3490